=== PATIENT | female | born 1955 | race Caucasian/White ===

== ENCOUNTER → 2022-04-25 10:29 | Outpatient (CLI) | payer MEDICARE, SELFPAY ==
--- NOTE | ~2022-04-25 | US_ITS ---
EXAMINATION: US thyroid DATE: 04/25/2022 11:00 INDICATION: Abnormal thyroid function tests TECHNIQUE: Multiple ultrasound images of the thyroid were obtained. COMPARISON: 09/09/2018. FINDINGS: The right thyroid lobe measures 3.5 x 1.8 x 1.3 cm. The left thyroid lobe measures 3.5 x 1.2 x 1.4 c m. There is heterogeneous echotexture and normal echogenicity throughout the thyroid gland. [place] tration of the 11 mm cystic, smoothly marginated, hypoechoic wider than tall left inferior lobe lesio n, without internal echogenic foci (BI-RADS 2). Normal vascular flow is present. IMPRESSION: 1. Stable 11 mm left inferior thyroid cyst, not suspicious. No FNA or follow-up recommended. 2. Heterogeneous thyroid gland which can be seen with Erin's thyroiditis and Graves' disease. Reviewed, dictated and finalized at location K. ERER IMPRESSION: 1. Stable 11 mm left inferior thyroid cyst, not suspicious. No FNA or follow-up recommended. 2. Heterogeneous thyroid gland which can be seen with Erin's thyroiditis a nd Graves' disease.
== END ==
PROVIDERS: PCP Family Medicine; Visit Provider Physician Assistant
DX: R94.6 Abnormal results of thyroid function studies (principal)
CPT/HCPCS: 76536

== ENCOUNTER 2022-11-19 14:08 | Emergency (ER) | payer MEDICARE, SELFPAY ==
--- NOTE | ~2022-11-19 | CT_ITS ---
EXAMINATION: CT facial bones wo con DATE: 11/19/2022 15:52 INDICATION: facial numbness . TECHNIQUE: Computed tomography (CT) of the facial bones and maxillofacial region was performed withou t intravenous contrast. Automated exposure control and iterative reconstruction technique were employ ed. The dose-length product was 564.13 mGy-cm. COMPARISON: None. FINDINGS: Soft Tissues: No significant superficial soft tissue swelling. Facial bones: No acute fracture. No lytic or blastic process. Eyes: The globes are intact. The soft tissue planes of the orbits are maintained. Bilateral lens re placements. Paranasal Sinuses: Small volume right mastoid fluid, without erosion. The remaining visualized aerat ed spaces are clear. Foreign Bodies: No radiopaque foreign bodies. Other Findings: Bilateral enlarged anterior cervical chain lymph nodes. IMPRESSION: Small volume right mastoid effusion without erosions. Bilateral anterior cervical chain lymphadenopat hy. Reviewed, dictated and finalized at location K. IMPRESSION: Small volume right mastoid effusion without erosions. Bilateral anterior cervic al chain lymphadenopathy.
--- NOTE | ~2022-11-19 | CT_ITS ---
EXAMINATION: CT brain wo con DATE: 11/19/2022 15:52 INDICATION: Right facial numbness. TECHNIQUE: Computed tomography (CT) of the head was performed without intravenous contrast. The mA wa s adjusted according to patient size. Iterative reconstruction technique was employed. The dose-lengt h product was 605.33 mGy-cm. COMPARISON: None FINDINGS: There are scattered areas of low attenuation in the cerebral white matter. There is no intr acranial hemorrhage, acute infarction, or abnormal intracranial mass lesion. The ventricles are lashell l in size. There are likely changes of ocular lens replacement surgeries. There is mild mucosal thick ening in the ethmoid sinuses. The mastoid air cells are normal. IMPRESSION: 1. Mild nonspecific cerebral white matter disease, which likely represents chronic small vessel ische jesus disease. Reviewed, dictated and finalized at location A. IMPRESSION: 1. 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
[2022-11-19 14:22] VITALS: BP 152/103; PULSE 80; RESP 18; TEMP 35.9; O2SAT 100
--- NOTE | 2022-11-19 15:37 | ED.NEUROSD ---
HPI - Neuro Symptoms/Deficit General Chief Complaint: Neuro Symptoms/Deficit Stated Complaint: right ear pain after busted ear drum Time Seen by Provider: 11/19/22 14:54 History of Present Illness HPI Narrative: Pt presents with righ facial numbness for 3 weeks around right ear and numbness to right side of tongue for 2 days. Pt denies HARPER or weakness in face. Pt had ruptured right TM awhile back. Pt denies ear pain or hearing loss. Related Data Home Medications Medication Instructions Recorded Confirmed amlodipine 10 mg tablet 10 mg PO DAILY 10/26/20 11/19/22 aspirin 81 mg chewable tablet 81 mg PO DAILY 10/26/20 11/19/22 insulin glargine U-300 conc 300 30 unit subcut DAILY 10/26/20 11/19/22 unit/mL (3 mL) subcutaneous pen (Toujeo Max U-300 SoloStar) lisinopril 10 mg tablet 10 mg PO DAILY 10/26/20 11/19/22 loratadine 10 mg tablet (Claritin) 10 mg PO DAILY 10/26/20 11/19/22 pravastatin 40 mg tablet 40 mg PO DAILY 10/26/20 11/19/22 sodium bicarbonate 325 mg tablet 325 mg PO BID PRN as directed 10/26/20 11/19/22 ciprofloxacin 0.3 %-dexamethasone 4 drp RIGHT EAR BID 11/19/22 11/19/22 0.1 % ear drops,suspension Allergies Allergy/AdvReac Type Severity Reaction Status Date / Time Sulfa (Sulfonamide Allergy Intermediate Unknown Verified 11/19/22 14:38 Antibiotics) Penicillins Allergy Unknown unknown Verified 11/19/22 14:38 NSAIDS (Non-Steroidal Allergy Other Verified 11/19/22 14:38 Anti-Inflamma Review of Systems Review of Systems: All systems reviewed & are unremarkable except as noted in HPI and below PMFSH Social History Social History Tobacco type: cigarettes Alcohol intake: current Drinks per week: 1 Substance use: never Exam Const: General: healthy appearing Nutritional Appearance: well nourished Orientation/consciousness: patient oriented x3 Limitations: no limitations HENMT: Ears: external ears normal Face and sinus: normal facial exam Mouth: Yes Normal oral and palatal mucosa present Eyes: Pupils: Equal, round and reactive pupils present EOM: EOMs intact bilaterally Neck: Neck: normal visual inspection and no lymphadenopathy Resp: Effort & Inspection: normal respiratory effort Auscultation: clear to auscultation bilaterally Cardio: Rate: regular rate Rhythm: regular rhythm GI: GI Palp: Yes Soft to palpation Auscultation: normal bowel sounds Skin: General skin exam: normal color Rashes: no rashes Wounds: no wounds Neuro: General: patient oriented x3, moves all extremities, no focal motor deficits and CN's II-XI intact bilaterally Cranial nerves: Yes Nystagmus not present Speech: normal speech Extrem: General: normal to inspection and no clubbing, cyanosis or edema Psych: Mental Status: mental status grossly normal Affect: normal affect Attitude: cooperative Course Vital Signs Vital signs: Vital Signs Temperature 96.7 F L 11/19/22 14:22 Pulse Rate 80 11/19/22 14:22 Respiratory Rate 18 11/19/22 14:22 Blood Pressure 152/103 H 11/19/22 14:22 Pulse Oximetry 100 11/19/22 14:22 Oxygen Delivery Room Air 11/19/22 14:22 Temperature 96.7 F L 11/19/22 14:22 Pulse Rate 80 11/19/22 14:22 Respiratory Rate 18 11/19/22 14:22 Blood Pressure 152/103 H 11/19/22 14:22 Pulse Oximetry 100 11/19/22 14:22 Oxygen Delivery Room Air 11/19/22 14:22 MDM - Neuro Symptoms/Deficit MDM Narrative Medical decision making narrative: facial nerve issue vs tumor, will need CT of head and facial bones. ct demonstrates no mass. ok to discharge. Pt does no want prednisone because it elevates her sugars Discharge Plan Discharge Clinical Impression: Facial nerve disorder, unspecified Patient Disposition: Home, Self-Care Condition: Stable Instructions: Antibiotic Form, Portillo Palsy (ED), Paresthesia (ED) Prescriptions: No Action sodium bicarbonate 325 mg tablet 325 mg PO BID P
== END 2022-11-19 17:22 | disposition home or self-care (01) ==
PROVIDERS: Emergency Provider Emergency Medicine; PCP Family Medicine
DX: G51.9 Disorder of facial nerve, unspecified (principal); F17.210 Nicotine dependence, cigarettes, uncomplicated; Z79.4 Long term (current) use of insulin; Z79.899 Other long term (current) drug therapy; Z79.82 Long term (current) use of aspirin
CPT/HCPCS: 70450; 70486; 99284